=== PATIENT | male | born 1995 | race Caucasian/White ===

== ENCOUNTER 2017-06-15 11:43 | Emergency (ER) | payer OTHER ==
[2017-06-15 11:50] VITALS: BP 133/94; PULSE 72; RESP 16; TEMP 98.2
--- NOTE | 2017-06-15 12:30 | ED ---
General Adult HPI - General Chief complaint: ENT Stated complaint: throat pain Time Seen by Provider: 06/15/17 12:20 Source: patient, RN notes reviewed Mode of arrival: ambulatory Limitations: no limitations - History of Present Illness Initial comments: Patient is a pleasant 21-year-old male presenting to the emergency department complaining of throat pain. Onset of symptoms was a week ago. Symptoms have not improved. Patient has used [id number] NyQuil and spray and gargle without improvement. No difficulty breathing. No sinus pain. No ear pain. No history of similar symptoms previously. - Related Data Previous Rx's Medication Instructions Recorded Acyclovir 400 mg PO TID #21 tablet 06/15/17 Allergies Allergy/AdvReac Type Severity Reaction Status Date / Time No Known Allergies Allergy Verified 06/15/17 11:50 Review of Systems ROS Statement: Those systems with pertinent positive or pertinent negative responses have been documented in the HPI. ROS Other: All systems not noted in ROS Statement are negative. Constitutional: Denies: fever, chills Eyes: Denies: eye pain ENT: Reports: throat pain. Denies: ear pain, dental pain, epistaxis, congestion Respiratory: Denies: cough, dyspnea Cardiovascular: Denies: chest pain Endocrine: Denies: fatigue Gastrointestinal: Denies: abdominal pain Genitourinary: Denies: dysuria Musculoskeletal: Denies: back pain Skin: Denies: rash Neurological: Denies: headache Past Medical History Past Medical History: No Reported History History of Any Multi-Drug Resistant Organisms: None Reported Past Surgical History: Adenoidectomy, Tonsillectomy Past Psychological History: ADD/ADHD Smoking Status: Current every day smoker Past Alcohol Use History: None Reported Past Drug Use History: None Reported General Exam Limitations: no limitations General appearance: alert, in no apparent distress Head exam: Present: atraumatic Eye exam: Present: normal appearance, PERRL ENT exam: Present: TM's normal bilaterally Expanded Throat exam: other (Mild erythema of the posterior pharynx with several small ulcers.) Neck exam: Present: normal inspection Respiratory exam: Present: normal lung sounds bilaterally Cardiovascular Exam: Present: regular rate, normal rhythm GI/Abdominal exam: Present: soft. Absent: tenderness Extremities exam: Present: normal inspection Neurological exam: Present: alert Psychiatric exam: Present: normal affect, normal mood Skin exam: Present: normal color Course Vital Signs 06/15/17 11:47 Temperature 98.2 F Pulse Rate 72 Respiratory 16 Rate Blood Pressure 133/94 O2 Sat by Pulse 100 Oximetry Medical Decision Making - Lab Data Lab Results 06/15/17 Range/Units 12:00 Group A Strep Rapid Negative (Negative) Disposition Clinical Impression: Acute viral pharyngitis Disposition: HOME SELF-CARE Condition: Stable Instructions: Pharyngitis (ED) Additional Instructions: [id number] Tylenol or Motrin as needed. Salt water gargle. Return for difficulty in breathing, not tolerating fluids, worsening symptoms or other concerns Prescriptions: Acyclovir 400 mg PO TID #21 tablet Referrals: None,Stated [Primary Care Provider] - 1-2 days Ronnell Garcia MD [REFERRING] - 1-2 days Time of Disposition: 12:30
== END 2017-06-15 12:43 | disposition home or self-care (01) ==
LOC: EC 11:43
DX: J02.8 Acute pharyngitis due to other specified organisms (principal); F17.200 Nicotine dependence, unspecified, uncomplicated
CPT/HCPCS: 87081; 87430; 99283

== ENCOUNTER → 2018-04-28 | Outpatient (CLI) | payer OTHER ==
--- NOTE | 2018-04-29 07:17 | ECHOF ---
Referral Reason:R07.89 atypical Chest Pain MEASUREMENTS -------- HEIGHT: 170.2 cm WEIGHT: 57.6 kg BP: 127/72 RVIDd: 2.4 cm (< 3.3) IVSd: 0.8 cm (0.6 - 1.1) LVIDd: 5.1 cm (3.9 - 5.3) LVPWd: 1.0 cm (0.6 - 1.1) IVSs: 1.3 cm LVIDs: 3.1 cm LVPWs: 1.4 cm LA Diam: 2.9 cm (2.7 - 3.8) Ao Diam: 3.1 cm (2.0 - 3.7) AV Cusp: 2.5 cm (1.5 - 2.6) MV EXCURSION: 23.688 mm (> 18.000) MV EF SLOPE: 169 mm/s (70 - 150) EPSS: 0.3 cm MV E Jose: 0.78 m/s MV DecT: 185 ms MV A Jose: 0.53 m/s MV E/A Ratio: 1.48 RAP: 5.00 mmHg RVSP: 27.58 mmHg FINDINGS -------- Sinus rhythm. This was a technically good study. The left ventricular size is normal. Left ventricular wall thickness is normal. Overall left vent ricular systolic function is normal with, an EF between 60 - 65 %. The right ventricle is normal in size. The left atrial size is normal. The right atrium is normal in size. The aortic valve is trileaflet, and appears structurally normal. No aortic stenosis or regurgitation. The mitral valve is normal. There is trace mitral regurgitation. Mild tricuspid regurgitation present. Right ventricular systolic pressure is normal at < 35 mmHg. There is no pulmonic regurgitation present. The aortic root size is normal. Normal inferior vena cava with normal inspiratory collapse consistent with estimated right atrial pre ssure of 5 mmHg. There is no pericardial effusion. CONCLUSIONS -------- 1. Sinus rhythm. 2. This was a technically good study. 3. The left ventricular size is normal. 4. Left ventricular wall thickness is normal. 5. Overall left ventricular systolic function is normal with, an EF between 60 - 65 %. 6. The left atrial size is normal. 7. The aortic valve is trileaflet, and appears structurally normal. No aortic stenosis or regurgitati on. 8. There is trace mitral regurgitation. 9. Mild tricuspid regurgitation present. 10. Right ventricular systolic pressure is normal at < 35 mmHg. 11. There is no pulmonic regurgitation present. 12. The aortic root size is normal. 13. Normal inferior vena cava with normal inspiratory collapse consistent with estimated right atrial pressure of 5 mmHg. 14. There is no pericardial effusion. CHICKEN HAND[employer]ER: Gayle Basurto RDCS
== END | disposition home or self-care (01) ==
LOC: RADECHMAIN 16:19
PROVIDERS: ATTEND Family Medicine
DX: I07.1 Rheumatic tricuspid insufficiency (principal); R07.89 Other chest pain
CPT/HCPCS: 93306